=== PATIENT | female | born 1970 | race Caucasian/White ===

== ENCOUNTER → 2023-10-10 | Outpatient (CLI) | payer OTHER ==
--- NOTE | 2023-10-12 15:30 | MM ---
Reason for Exam: Screening (asymptomatic). Last mammogram was performed 1 year(s) and 2 month(s) ago. Patient History: Menarche at age 11. First Full-Term at age 32. Late child-bearing (after 30). Postmenopausal. Patient has history of breast feeding. 2009, Bilateral Reduction. Risk Values: Manuela 5 year model risk: 1.6%. NCI Lifetime model risk: 11.4%. Prior Study Comparison: 11/13/2017 Bilateral Screening Mammogram, [facility]. 12/16/2018 Bilateral Screening Mammogram, [facility]. 03/12/2020 Bilateral Screening Mammogram, [facility]. 06/30/2021 Bilateral Screening Mammogram, [facility]. 08/08/2022 Bilateral Screening Mammogram, [facility]. Tissue Density: There are scattered fibroglandular densities. Findings: Analyzed By CAD. Pattern appears symmetrical and stable. There is an oval chronic nodule within the posterior right breast, stable from comparison. No suspicious groups of microcalcifications, spiculated or lobular masses, architectural distortion or other secondary signs of malignancy are mammographically apparent. Overall Assessment: Benign, BI-RAD 2 Management: Screening Mammogram of both breasts in 1 year. A negative mammogram report should not preclude additional follow up of suspicious palpable abnormalities. Patient should continue monthly self breast exam. A clinical breast exam by your physician is recommended on an annual basis and results should be correlated with mammographic findings. Electronically signed and approved by: Gaetano Rutherford D.O. Radiologis
== END | disposition home or self-care (01) ==
LOC: RADMAMWWP 13:12
PROVIDERS: ATTEND Obstetrics & Gynecology
DX: Z12.31 Encounter for screening mammogram for malignant neoplasm of breast (principal); Z78.0 Asymptomatic menopausal state
CPT/HCPCS: 77063; 77067

== ENCOUNTER → 2025-01-15 | Outpatient (CLI) | payer MEDICARE ==
--- NOTE | 2025-01-15 17:46 | MM ---
Reason for Exam: Screening (asymptomatic). Last mammogram was performed 1 year(s) and 3 month(s) ago. Patient History: Menarche at age 11. First Full-Term at age 32. Late child-bearing (after 30). Postmenopausal. Patient has history of breast feeding. 2009, Bilateral Reduction. Risk Values: Manuela 5 year model risk: 1.6%. NCI Lifetime model risk: 11.2%. Prior Study Comparison: 06/30/2021 Bilateral Screening Mammogram, [facility] . 08/08/2022 Bilateral Screening Mammogram, [facility] . 10/10/2023 Bilateral MG 3D screening mammo w/cad, [facility]. Tissue Density: There are scattered areas of fibroglandular density. Findings: Analyzed By CAD. Areas of asymmetric densities such as posterior outer left cc view and posterior central right cc view are unchanged. There is no suspicious group of microcalcifications or new suspicious mass in either breast. Overall Assessment: Benign, BI-RAD 2 Management: Screening Mammogram of both breasts in 1 year. Patient should continue monthly self-breast exams. A clinical breast exam by your physician is recommended on an annual basis. This exam should not preclude additional follow-up of suspicious palpable abnormalities. Note on Manuela scores and lifetime risk: 1. A Manuela score greater than 3% is considered moderate risk. If this is the case, consider specialist referral to assess eligibility for a risk reducing agent. 2. If overall lifetime risk for the development of breast cancer is 20% or higher, the patient may qualify for future screening with alternating mammogram and breast MRI. [facility], , 01/15/2025 5:44 PM. Electronically signed and approved by: Frankie Pérez M.D. Radiologist
== END | disposition home or self-care (01) ==
LOC: RADMAMWWP 16:26
PROVIDERS: ATTEND Obstetrics & Gynecology
DX: Z12.31 Encounter for screening mammogram for malignant neoplasm of breast (principal); R92.323 Mammographic fibroglandular density, bilateral breasts; Z78.0 Asymptomatic menopausal state
CPT/HCPCS: 77063; 77067